=== PATIENT | male | born 1985 ===

== ENCOUNTER 2021-09-15 14:18 | Outpatient (CLI) | payer OTHER | END 2021-09-15 15:18 | disposition home or self-care (01) | LOC: ASH CLINIC 14:18 | DX: U07.1 COVID-19 (principal); Z23 Encounter for immunization ==

== ENCOUNTER 2025-03-10 08:33 | Outpatient (CLI) | payer OTHER | END 2025-03-10 08:36 | disposition home or self-care (01) | LOC: RAD 08:33 | DX: M25.522 Pain in left elbow (principal) ==